=== PATIENT | male | born 1995 | race Caucasian/White ===

== ENCOUNTER 2021-06-15 06:35 | Day surgery (SDC) | payer MEDICAID, SELFPAY ==
[~2021-06-15] VITALS: Ht 175.3 cm; Wt 108.9 kg
[2021-06-15] MEDS ORDERED: SIMETHICONE 40 MG/0.6 ML ML ONE (08:17)
[2021-06-15] MEDS ORDERED: MEPERIDINE 100 MG INJ. 100 MG/ML VIAL ONE (08:18)
[2021-06-15] MEDS ORDERED: MIDAZOLAM HCL 5 MG/5 ML VIAL ONE ×2 (08:18→09:39)
[2021-06-15] MEDS ORDERED: DIPHENHYDRAMINE INJ 50 MG/ML VIAL ONE (09:39)
[2021-06-15 13:47] VITALS: BP_SYST 136
== END 2021-06-15 10:55 | disposition home or self-care (01) ==
LOC: SDS 06:35 → SMU 06:36 → SDS 10:55
PROVIDERS: ATTEND Internal Medicine Gastroenterology
DX: R19.4 Change in bowel habit (principal); D12.4 Benign neoplasm of descending colon; K64.8 Other hemorrhoids; K57.32 Diverticulitis of large intestine without perforation or abscess without bleeding; F17.210 Nicotine dependence, cigarettes, uncomplicated; Z79.899 Other long term (current) drug therapy; Z20.822 Contact with and (suspected) exposure to COVID-19
CPT/HCPCS: 45385; 88305; 99152; 99153; G0378; J1200; J2175; J2250; U0003